=== PATIENT | female | born 1945 | race Caucasian/White ===

== ENCOUNTER 2019-05-18 14:12 | Emergency (ER) | payer MEDICARE, BC ==
[2019-05-18 14:34] VITALS: BP 137/95; PULSE 68
[2019-05-18] MEDS ORDERED: Sodium Chloride 0.9% 1,000 ML IV SCH ×2 (15:00→16:45)
--- NOTE | 2019-05-18 15:00 | EDM.PDOC ---
ED HPI GENERAL MEDICAL PROBLEM - General Chief Complaint: Respiratory Problem Stated Complaint: SOB Time Seen by Provider: 05/18/19 14:50 Source of Information: Reports: Patient History Limitations: Reports: No Limitations - History of Present Illness INITIAL COMMENTS - FREE TEXT/NARRATIVE: 74-year-old female presents to the ED for evaluation of pleuritic anterior chest pain. The came on fairly suddenly this morning was 0800 hrs. She has pain primarily in the left upper anterior chest that also feels that in the lower mid and precordial chest under her breast on the left side. She also states feeling it seems to be starting to spread to the right side as well. It's not bad if she breathes quite shallow but if she breathes deeply at all it is quite sharp and stabbing. She's had a cold with nasal congestion and minimal cough for the last week. No fever or chills. Mild quantities of sputum may be first thing in the morning. Hemoptysis. She has been treated for rheumatoid arthritis with 9 years of infusions in the past but now the diagnosis and left in a bit of possibly not. Patient also has nausea and some diffuse upper abdominal discomfort as well. No diarrhea. No vomiting. Patient is allergic to NSAIDs and codeine. Also allergic to methotrexate. Previous abdominal surgeries that of a cholecystectomy, appendectomy, total hysterectomy with retention of one of her ovaries and then surgery for a perforated colon felt to be a side effect of the infusions being given for rheumatoid arthritis. She required a resection of colon and primary anastomosis. Patient has been having a lot more heartburn as of late and this will cause some pain to radiate up into her left chest as well into her neck and throat. No pain into her left arm or shoulder blade today. She has no known heart disease. Onset: Today Onset Date: 05/18/19 Onset Time: 08:00 Duration: Hour(s): Location: Reports: Chest (Pleuritic pain throughout the left precordial anterior chest.) Quality: Reports: Sharp, Stabbing (Strongly pleuritic left-sided anterior chest pain) Severity: Moderate (5-6 out of 10 with a deep breath) Improves with: Reports: Rest (And shallow breathing) Worsens with: Reports: Movement Context: Reports: Other. Denies: Activity (Certain movements and deep breath will make the pain worse), Exercise, Lifting, Sick Contact, Trauma Associated Symptoms: Reports: Chest Pain (Spontaneous occurrence rather suddenly about 0800 hrs. this morning.), Cough, Loss of Appetite, Malaise, Nausea/Vomiting, Shortness of Breath. Denies: Confusion, Diaphoresis, Fever/ Chills (Minimal cough with sputum production 1 week), Headaches, Rash, Seizure , Syncope, Weakness (Nausea without vomiting) Treatments HOME LENDING OFFICER: Reports: Other (see below) (None.) Left Chest Pain Score (Numeric/FACES): 5 - Related Data Allergies Allergy/AdvReac Type Severity Reaction Status Date / Time atorvastatin Allergy hive Verified 05/18/19 14:34 codeine Allergy hive Verified 05/18/19 14:34 methotrexate Allergy hive Verified 05/18/19 14:34 NSAIDS (Non-Steroidal Allergy hive Verified 05/18/19 14:34 Anti-Inflamma piroxicam [From Feldene] Allergy hive Verified 05/18/19 14:34 Home Meds: Home Meds Acetaminophen [Tylenol Extra Strength] 500 mg PO DAILY PRN 10/05/14 [History] Aspirin [Nelson Chewable Aspirin] 81 mg PO DAILY 10/05/14 [History] Levothyroxine [Synthroid] 88 mcg PO DAILY 10/05/14 [History] Methylcellulose [Citrucel] 2 gm PO BID 10/05/14 [History] Pantoprazole [ProTONIX] 40 mg PO DAILY 10/05/14 [History] Sertraline [Zoloft] 100 mg PO DAILY 10/05/14 [History] amLODIPine [Norvasc] 5 mg PO DAILY 10/05/14 [History] Dicyclomine [Bentyl] 20 mg PO Q8H PRN #15 tablet 05/18/19 [Rx] predniSONE [Deltasone] 20 mg PO ASDIRECTED #15 tablet 05/18/19 [Rx] Past Medical History HEENT History: Reports: Impaired Vision Cardiovascular History: Reports: Hypertension Genitourinary History: Reports: Urinary Incontinence EDITORIAL SPECIALIST History: Reports: Psychiatric History: Reports: Depression Endocrine/Metabolic History: Reports: Hypothyroidism, Osteopenia - Past Surgical History HEENT Surgical History: Reports: Adenoidectomy, Naso-Sinus Surgery, Tonsillectomy GI Surgical History: Reports: Abdominal paracentesis, Appendectomy, Cholecystectomy, Other (See Below) Other GI Surgeries/Procedures: perforated colon, required partial colectomy with primary anastomosis. Perforation of the colon felt to be secondary to medication being infused for rheumatoid arthritis. Female Surgical History: Reports: Hysterectomy, Salpingo-Oophorectomy ( Retained one ovary.) Musculoskeletal Surgical History: Reports: Knee Replacement (Bilateral total knee replacements), Other (See Below) Other Musculoskeletal Surgeries/Procedures:: L4-5-12? rods in back Social & Family History - Family History Neurological: Reports: CVA - Tobacco Use Smoking Status *Q: Never Smoker Second Hand Smoke Exposure: No - Caffeine Use Caffeine Use: Reports: Coffee - Recreational Drug Use Recreational Drug Use: No - Living Situation & Occupation Living situation: Reports: Occupation: Retired ED ROS GENERAL - Review of Systems Review Of Systems: See Below Constitutional: Reports: Malaise, Decreased Appetite. Denies: Fever, Chills, Weight Loss HEENT: Reports: Glasses Respiratory: Reports: Shortness of Breath, Pleuritic Chest Pain (Strongly pleuritic left-sided chest pain.), Cough, Sputum (Minimal cough 1 week with nasal congestion. I.e. cold symptoms). Denies: Wheezing Cardiovascular: Reports: Chest Pain ( of clear sputum production.), Blood Pressure Problem ( see history of present illness ), Dyspnea on Exertion. Denies: Claudication, Edema, Lightheadedness, Orthopnea ( chronic hypertension well controlled), Palpitations Endocrine: Reports: Fatigue GI/Abdominal: Reports: Decreased Appetite, Other (Increased GERD as of late rating up into her neck and throat.). Denies: Constipation, Diarrhea, Difficulty Swallowing, Hematemesis, Hematochezia : Reports: Frequency Musculoskeletal: Reports: Back Pain, Joint Pain (Pain in her hands particularly the first and second second and third metacarpal phalangeal joints. Plenty of pain in her toes as well. Has had bilateral total knee replacements) Skin: Reports: No Symptoms Neurological: Reports: No Symptoms Psychiatric: Reports: No Symptoms Hematologic/Lymphatic: Reports: No Symptoms ED EXAM, GENERAL - Physical Exam Exam: See Below Exam Limited By: No Limitations General Appearance: Alert, WD/WN, Moderate Distress, Other (Temperatures 36.2. Pulse 60 and sinus respiratory distress 15. Sats are 96-98% on room air. BP is 121/72.) Eye Exam: Bilateral Eye: Normal Inspection, PERRL Throat/Mouth: Normal Inspection, Normal Lips, Normal Oropharynx Head: Atraumatic, Normocephalic Neck: Normal Inspection, Limited Range of Motion, Tender Lateral. No: Lymphadenopathy (L), Lymphadenopathy (R) Respiratory/Chest: No Respiratory Distress, Lungs Clear, Normal Breath Sounds, No Accessory Muscle Use, Splinting, Other (Splinting respirations.). No: Decreased Breath Sounds Cardiovascular: Normal Peripheral Pulses, Regular Rate, Rhythm, No Edema, No Gallop, No Murmur, No Rub Peripheral Pulses: 2+: Posterior Tibial (L), Posterior Tibial (R), Dorsalis Pedis (L), Dorsalis Pedis (R) GI/Abdominal: Normal Bowel Sounds, Soft, Non-Tender, No Organomegaly, No Abnormal Bruit, No Mass, Pelvis Stable, Tender (Tenderness just below the epigastrium.), Abnormal Bowel Sounds, Other (Negative Glynn sign) Back Exam: Decreased Range of Motion (Very limited range of motion and she's got fusion of her lower back. Well-healed scar over her mid lower lumbar spine.) , Other Extremities: Normal Inspection, Normal Range of Motion, Non-Tender, Other (No edema no pain or tenderness in the posterior calves to suggest DVT.) Neurological: Alert, Oriented, CN II-XII Intact, Normal Cognition, Normal Gait Psychiatric: Anxious Skin Exam: Warm, Dry, Intact, Normal Color, No Rash EKG INTERPRETATION EKG Date: 05/18/19 Time: 14:29 Rhythm: NSR Rate (Beats/Min): 64 [place]: LAD-Left [place] Deviation (Left axis deviation of -33.) P-Wave: Enlarged (Consider left atrial hypertrophy pattern.) QRS: Other (There is early R-wave transition particularly noted in V2. Consider right ventricular hypertrophy versus right ventricular strain pattern. Decreased voltage limb and precordial leads. There are near Q waves in leads II , III, and F aVF. Consider possible old inferior wall myocardial infarction.) ST-T: Other QT: Normal EKG Interpretation Comments: Abnormal ECG Course - Vital Signs Last Recorded V/S: Last Vital Signs Temp 36.2 C 05/18/19 14:25 Pulse 68 05/18/19 14:25 Resp 15 05/18/19 14:25 BP 137/95 H 05/18/19 14:25 Pulse Ox 96 05/18/19 14:25 - Orders/Labs/Meds Labs: Laboratory Tests 05/18/19 05/18/19 05/18/19 Range/Units 15:30 15:30 15:30 WBC 7.55 (3.98-10.04) K/mm3 RBC 4.42 (3.98-5.22) M/mm3 Hgb 13.0 (11.2-15.7) gm/dl Hct 38.0 (34.1-44.9) % MCV 86.0 (79.4-94.8) fl MCH 29.4 (25.6-32.2) pg MCHC 34.2 (32.2-35.5) g/dl RDW Std Deviation 44.3 (36.4-46.3) fL Plt Count 268 (182-369) K/mm3 MPV 9.3 L (9.4-12.3) fl Neut % (Auto) 72.7 H (34.0-71.1) % Lymph % (Auto) 17.9 L (19.3-51.7) % [place] % (Auto) 8.3 (4.7-12.5) % Eos % (Auto) 0.8 (0.7-5.8) Baso % (Auto) 0.3 (0.1-1.2) % Neut # (Auto) 5.49 (1.56-6.13) K/mm3 Lymph # (Auto) 1.35 (1.18-3.74) K/mm3 [place] # (Auto) 0.63 H (0.24-0.36) K/mm3 Eos # (Auto) 0.06 (0.04-0.36) K/mm3 Baso # (Auto) 0.02 (0.01-0.08) K/mm3 ESR (0-20) mm/hr PT 10.3 (9.7-12.0) SECONDS INR 0.94 APTT 23 (22-31) SECONDS D-Dimer, Quantitative (0.19-0.50) mg/L Sodium 138 (136-145) mEq/L Potassium 4.0 (3.5-5.1) mEq/L Chloride 104 (98-107) mEq/L Carbon Dioxide 27 (21-32) mEq/L Anion Gap 11.0 (5-15) BUN 17 (7-18) mg/dL Creatinine 1.2 H (0.55-1.02) mg/dL Est Cr Clr Drug Dosing 33.51 mL/min Estimated GFR (MDRD) 44 (>60) mL/min BUN/Creatinine Ratio 14.2 (14-18) Glucose 95 (83-115) mg/dL Calcium 9.2 (8.5-10.1) mg/dL Magnesium 2.1 (1.8-2.4) mg/dl Total Bilirubin 0.3 (0.2-1.0) mg/dL AST 15 (15-37) U/L ALT 18 (14-59) U/L Alkaline Phosphatase 116 (46-116) U/L Troponin I < 0.017 (0.00-0.056) ng/mL C-Reactive Protein 0.5 (<1.0) mg/dL NT-Pro-B Natriuret Pep (0-450) pg/mL Total Protein 7.4 (6.4-8.2) g/dl Albumin 3.8 (3.4-5.0) g/dl Globulin 3.6 gm/dL Albumin/Globulin Ratio 1.1 (1-2) Amylase (20-160) U/L 05/18/19 05/18/19 05/18/19 Range/Units 15:30 15:30 15:30 WBC (3.98-10.04) K/mm3 RBC (3.98-5.22) M/mm3 Hgb (11.2-15.7) gm/dl Hct (34.1-44.9) % MCV (79.4-94.8) fl MCH (25.6-32.2) pg MCHC (32.2-35.5) g/dl RDW Std Deviation (36.4-46.3) fL Plt Count (182-369) K/mm3 MPV (9.4-12.3) fl Neut % (Auto) (34.0-71.1) % Lymph % (Auto) (19.3-51.7) % [place] % (Auto) (4.7-12.5) % Eos % (Auto) (0.7-5.8) Baso % (Auto) (0.1-1.2) % Neut # (Auto) (1.56-6.13) K/mm3 Lymph # (Auto) (1.18-3.74) K/mm3 [place] # (Auto) (0.24-0.36) K/mm3 Eos # (Auto) (0.04-0.36) K/mm3 Baso # (Auto) (0.01-0.08) K/mm3 ESR 22 H (0-20) mm/hr PT (9.7-12.0) SECONDS INR APTT (22-31) SECONDS D-Dimer, Quantitative 0.86 H (0.19-0.50) mg/L Sodium (136-145) mEq/L Potassium (3.5-5.1) mEq/L Chloride (98-107) mEq/L Carbon Dioxide (21-32) mEq/L Anion Gap (5-15) BUN (7-18) mg/dL Creatinine (0.55-1.02) mg/dL Est Cr Clr Drug Dosing mL/min Estimated GFR (MDRD) (>60) mL/min BUN/Creatinine Ratio (14-18) Glucose (83-115) mg/dL Calcium (8.5-10.1) mg/dL Magnesium (1.8-2.4) mg/dl Total Bilirubin (0.2-1.0) mg/dL AST (15-37) U/L ALT (14-59) U/L Alkaline Phosphatase (46-116) U/L Troponin I (0.00-0.056) ng/mL C-Reactive Protein (<1.0) mg/dL NT-Pro-B Natriuret Pep 146 (0-450) pg/mL Total Protein (6.4-8.2) g/dl Albumin (3.4-5.0) g/dl Globulin gm/dL Albumin/Globulin Ratio (1-2) Amylase (20-160) U/L 05/18/19 Range/Units 15:30 WBC (3.98-10.04) K/mm3 RBC (3.98-5.22) M/mm3 Hgb (11.2-15.7) gm/dl Hct (34.1-44.9) % MCV (79.4-94.8) fl MCH (25.6-32.2) pg MCHC (32.2-35.5) g/dl RDW Std Deviation (36.4-46.3) fL Plt Count (182-369) K/mm3 MPV (9.4-12.3) fl Neut % (Auto) (34.0-71.1) % Lymph % (Auto) (19.3-51.7) % [place] % (Auto) (4.7-12.5) % Eos % (Auto) (0.7-5.8) Baso % (Auto) (0.1-1.2) % Neut # (Auto) (1.56-6.13) K/mm3 Lymph # (Auto) (1.18-3.74) K/mm3 [place] # (Auto) (0.24-0.36) K/mm3 Eos # (Auto) (0.04-0.36) K/mm3 Baso # (Auto) (0.01-0.08) K/mm3 ESR (0-20) mm/hr PT (9.7-12.0) SECONDS INR APTT (22-31) SECONDS D-Dimer, Quantitative (0.19-0.50) mg/L Sodium (136-145) mEq/L Potassium (3.5-5.1) mEq/L Chloride (98-107) mEq/L Carbon Dioxide (21-32) mEq/L Anion Gap (5-15) BUN (7-18) mg/dL Creatinine (0.55-1.02) mg/dL Est Cr Clr Drug Dosing mL/min Estimated GFR (MDRD) (>60) mL/min BUN/Creatinine Ratio (14-18) Glucose (83-115) mg/dL Calcium (8.5-10.1) mg/dL Magnesium (1.8-2.4) mg/dl Total Bilirubin (0.2-1.0) mg/dL AST (15-37) U/L ALT (14-59) U/L Alkaline Phosphatase (46-116) U/L Troponin I (0.00-0.056) ng/mL C-Reactive Protein (<1.0) mg/dL NT-Pro-B Natriuret Pep (0-450) pg/mL Total Protein (6.4-8.2) g/dl Albumin (3.4-5.0) g/dl Globulin gm/dL Albumin/Globulin Ratio (1-2) Amylase 63 (20-160) U/L Meds: Medications Discontinued Medications Generic Name Dose Route Start Last Admin Trade Name Freq PRN Reason Stop Dose Admin Al Hydroxide/Mg Hydroxide 30 0 ml 05/18/19 18:33 05/18/19 18:47 ml/ Lidocaine HCl 15 ml PO 05/18/19 18:34 45 ml ONETIME ONE Administration Dexamethasone 10 mg 05/18/19 19:33 05/18/19 19:49 Dexamethasone IVPUSH 05/18/19 19:34 10 mg ONETIME ONE Administration Dicyclomine HCl 20 mg 05/18/19 19:33 05/18/19 19:50 Bentyl PO 05/18/19 19:34 20 mg ONETIME ONE Administration Hydromorphone HCl 0.5 mg 05/18/19 15:01 05/18/19 15:34 Dilaudid IVPUSH 05/18/19 15:02 0.5 mg ONETIME ONE Administration Hydromorphone HCl 0.5 mg 05/18/19 16:38 05/18/19 16:42 Dilaudid IVPUSH 05/18/19 16:39 0.5 mg ONETIME ONE Administration Sodium Chloride 1,000 mls @ 75 mls/hr 05/18/19 15:00 05/18/19 15:38 Normal Saline IV 75 mls/hr ASDIRECTED HERIBERTO Administration Sodium Chloride 1,000 mls @ 500 mls/hr 05/18/19 16:45 Normal Saline IV ASDIRECTED HERIBERTO Sodium Chloride 100 mls @ 75 mls/hr 05/18/19 16:45 05/18/19 17:09 Normal Saline IV 75 mls/hr ASDIRECTED HERIBERTO Administration Iopamidol 100 ml 05/18/19 16:41 05/18/19 17:08 Isovue-370 (76%) IVPUSH 05/18/19 16:42 100 ml ONETIME ONE Administration Magnesium Citrate 240 ml 05/18/19 19:34 05/18/19 19:50 Citrate Of Magnesia PO 05/18/19 19:35 240 ml ONETIME ONE Administration Ondansetron HCl 4 mg 05/18/19 15:01 05/18/19 15:32 Zofran IVPUSH 05/18/19 15:02 4 mg ONETIME ONE Administration Sodium Chloride 10 ml 05/18/19 16:41 05/18/19 17:08 Saline Flush FLUSH 10 ml ONETIME PRN Administration IV FLUSH - Radiology Interpretation Free Text/Narrative:: 74-year-old female presents to the ED with fairly sudden onset of diffuse left- sided pleuritic chest pain this morning. Started about 0800 hrs. and she's found that it's progressed intensity as the day has gone on. She's had cold- like symptoms for the last week with slight runny nose and minimal cough. No fever or chills. She has a past history of suspect rheumatoid arthritis. No diagnosis is rheumatoid lung. No recent travel history to be worrisome for DVT. She is splinting respirations as deep breathing makes the pain much worse. Has a history of significant GERD and that's been worse as of late rating up into her neck and throat. This feels different. She does have diffuse chest wall pain on exam particularly ribs 2-6 midclavicular line on the left side of ribs 345 on the right side. CT suggests possible old inferior wall myocardial infarction. There is no signs of acute ischemic change. There is prominent R waves in V2 suggesting right ventricular hypertrophy or strain pattern. Therefore PE needs to be ruled out. Sats are 98% room air. Rated as 5-6 of the 10. She appears to be quite uncomfortable. IV will be normal saline at 75 mils per hour. Will give Dilaudid 0.5 mg IV with Zofran 4 mg IV. Patient is allergic to all nonsteroidals. Labs will include sedimentation rate and CRP and d-dimer and troponin. - Re-Assessments/Exams Free Text/Narrative Re-Assessment/Exam: 05/18/19 16:06 chest x-ray done portably is completely within normal limits. Slightly rotated to the right. Did not take a deep inspiration. 05/18/19 16:31 Hematology reveals a normal white count at 7.55. Auto differential is 72.7% neutrophils. Hemoglobin is 13.0 with hematocrit of 38.0. Platelet count 268,000. PT is 10.3 with an INR 0.94 PTT is 23. D-dimer is mildly elevated at 0.86. Sodium is 138 with a potassium of 4.0. Chloride 104 bicarbonate 27. Anion gap is 11.0. The you and 17. Creatinine is 1.2. Estimated GFR is 44. Stage III chronic kidney disease . glucose is 95. Calcium is 9.2. Magnesium is 2.1. Liver function is normal. Troponin I is less than 0.017 C- reactive protein is 0.5 BNP is 146. Total protein 7.4 with no been fraction of 3.8. Will therefore proceed with CT pulmonary angiogram. IV will be opened up to full. 05/18/19 16:39 patient and advised of the findings. We will go ahead with a CT pulmonary and gram. IV will be opened up to 500 mils of now are of normal saline. She still having more pain although it seems to left her upper chest it's more in her left upper quadrant of her abdomen. She arrived and pelvis performed at the same time as her chest. Given repeat Dilaudid 0.5 mg IV for pain relief. No adverse effects from the first dose. 05/18/19 18:26 CT of the chest reveals no pericardial thickening. Mediastinum and hilar regions are unremarkable. Thoracic aorta shows no aneurysm. Pulmonary arteries show no filling defects to indicate pulmonary embolism. Visualized lungs show no acute parenchymal changes. Incidental dependent atelectasis noted within both posterior lungs. Bone window settings were reviewed which shows mild disc space narrowing throughout the entire thoracic spine with no acute osseous abnormality noted. CT of the abdomen and pelvis reveals a small to moderate sized hiatal hernia. This is slightly increased in size from previous exam. There is mild intrahepatic biliary ductal dilatation seen. There is slight extrahepatic biliary duct dilatation as well. Previous cholecystectomy is noted which is most likely the etiology for the biliary tree obstruction. No focal abnormalities appreciated within the liver. Spleen is normal in size. Adrenal glands show no nodules. Pancreas is within normal limits. Kidneys show symmetric contrast enhancement without hydronephrosis or mass. Aorta shows no aneurysm with diffuse atherosclerotic calcification being noted. No retroperitoneal adenopathy or mesenteric abnormalities are noted. No pelvic mass or adenopathy appreciated. There is an anastomotic sutures noted in the rectosigmoid junction. No free fluid or inflammatory changes seen. Appendix is not visualized with any certainty. Bone window settings were reviewed which shows scoliosis and degenerative change throughout the spine. His previous surgery is noted within the lower lumbar spine there is a small fat-containing umbilical hernia. There is moderately increased stool within the colon appreciated. 05/18/19 18:32 on consultation with the patient she now has more retrosternal pressure discomfort. I suspect this is secondary to the hiatal hernia. Will give her a GI cocktail. At this time she has to get up to use the bathroom. She' ll get a GI cocktail when she returns from the bathroom. 05/18/19 19:34 Discussed the findings with the patient and her . It appears that she has 3 or 4 things going on at this time. I believe her abdominal pain is secondary to constipation test of colic as most of the ascending colon all of the transverse colon and portions of the descending colon contain a large amount of stool. Medially this by Citroma 8 ounces by mouth tomorrow morning to provide bowel cleanse. She's been using Citrucel chronically since she had rectosigmoid surgery. Suggest changing this to MiraLAX powder 17 g daily for constipation relief. Second problem is pleuritic chest pain which appears to be viral in etiology since she has a normal white count. She is allergic to all NSAIDs and doesn't do well with pain medication. Going to therefore place her on steroids giving her dexamethasone 10 mg now through the IV and then start her on prednisone 20 mg twice daily for 5 days and then once daily in the morning for another 5 days. The third problem is increased reflux and heartburn recently and she reports 2 very bad days in the last 7 days with severe heartburn which may be playing a large role in her chest pain syndrome. CT shows that the hiatal hernia has enlarged in size as compared to the last CT. We discussed follow-up with Dr. Wise surgeon who has worked on her before to discuss whether or not she is a candidate for fundoplication. She will double her Prilosec 20 mg twice daily for the next 10 days morning and bedtime. She will also use Bentyl 20 mg tablet three times daily before meals for the next 5 days to relieve spasm of the food pipe. Departure - Departure Time of Disposition: 19:38 Disposition: Home, Self-Care 01 Condition: Fair Clinical Impression: Pleurisy without effusion, Constipation by delayed colonic transit, Gastroesophageal reflux disease with hiatal hernia - Discharge Information *PRESCRIPTION DRUG MONITORING PROGRAM REVIEWED*: Not Applicable *COPY OF PRESCRIPTION DRUG MONITORING REPORT IN PATIENT LOKI: Not Applicable Prescriptions: Dicyclomine [Bentyl] 20 mg PO Q8H PRN #15 tablet PRN Reason: Abdominal cramps/diarrhea predniSONE [Deltasone] 20 mg PO ASDIRECTED #15 tablet Instructions: Constipation, Adult, [id number], Gastroesophageal Reflux Disease, Adult, [id number], Pleurisy, [id number] Referrals: Denisha Camacho BEATER ENGINEER HELPER [Primary Care Provider] - Forms: ED Department Discharge Additional Instructions: Evaluation the emergency room today in regards to diffuse anterior pleuritic chest pain. Pleurisy means it hurts to breathe. The cause of this appears to be bilateral leisure white count is normal. CT scan of the chest did not reveal any blood clots in the lungs or inflammation of the lung lining or heart lining. Sign of congestive heart failure. Suggest treatment with Deltasone which is of prednisone based drug 1 tablet with breakfast and supper daily for 5 days and then once in the morning only for another 5 days to relieve inflammation. This is because she cannot tolerate nonsteroidal anti- inflammatories. Second problem was diffuse upper abdominal pain which is I believe secondary to intestinal colic from constipation. The CT demonstrates a large amount of stool throughout the right side of the colon across the upper abdomen and parts of the descending colon on the left side. Suggest taking Citroma or magnesium citrate 8 ounces tomorrow morning mixed with 6 ounces of juice of choice or Gatorade or Powerade to provide bowel cleanse. This usually starts to work in 1-2 hours need bowels will usually move 3 or 4 times often ending in some diarrhea. Suggest stopping the Citrucel and replacing with MiraLAX powder 1 scoop or 17 g every day to prevent constipation. Third problem is I believe esophageal spasm due to hiatal hernia. Hiatal hernia on CT today is larger than it was on last CT scan. As you indicated you had terrible heartburn a couple days in the last week. Suggest using Bentyl 20 mg with each meal the next 5 days to help the esophagus heal. Suggest increasing her Prilosec or Protonix to twice daily once in the morning and once at bedtime to try and refer the reduce the acid in the stomach which I think is causing reflux from a large hiatal hernia. Suggest consultation with Dr. Wise in [place] in regards to possibility of fundoplication surgery to repair hiatal hernia prevent reflux disease. Follow-up with personal care physician in 3-4 days time to make sure that you're getting better.
[2019-05-18] MEDS ORDERED: Ondansetron 4 MG/2 ML SDV IVPUSH ONE (15:01)
[2019-05-18] MEDS ORDERED: HYDROmorphone 0.5 MG/0.5 ML Syringe IVPUSH ONE ×2 (15:01→16:38)
[2019-05-18] MEDS ORDERED: Sodium Chloride 0.9% 10 ML Syringe FLUSH PRN (16:41)
[2019-05-18] MEDS ORDERED: Iopamidol 755 Mg/ML 100 ML Bottle IVPUSH ONE (16:41)
[2019-05-18] MEDS ORDERED: Sodium Chloride 0.9% 100 ML IV SCH (16:45)
--- NOTE | 2019-05-18 17:36 | CT ---
CT chest Technique: Multiple axial sections through the chest were obtained. Intravenous contrast was utilized. Study has been performed as a pulmonary angiogram protocol. Findings: No pericardial thickening is seen. Mediastinum and hilar regions are unremarkable. Thoracic aorta shows no aneurysm. Pulmonary arteries show no filling defects to indicate pulmonary embolism. Visualized lungs show no acute parenchymal change. Incidental dependent atelectasis is noted within both posterior lungs. Bone window settings were reviewed which shows mild disc space narrowing throughout the thoracic spine with no acute osseous abnormality being identified. Impression: 1. No findings of pulmonary embolism. 2. Other findings which are believed to be incidental as noted above. Diagnostic code #2
--- NOTE | 2019-05-18 17:36 | CT ---
CT abdomen and pelvis Technique: Multiple axial sections were obtained from above the dome of the diaphragm inferiorly through the pubic symphysis. Intravenous contrast was utilized. No oral contrast has been given. Comparison: Previous CT abdomen and pelvis exam of 02/19/15. Findings: Visualized lung bases shows nothing acute. Small to moderate sized hiatal hernia is noted. This has slightly increased in size from prior exam. Mild intrahepatic biliary ductal dilatation is seen. Slight extrahepatic biliary duct dilatation is noted. Previous cholecystectomy is noted which is most likely the etiology for the biliary dilatation. No focal abnormality is appreciated within the liver. Spleen size is normal. Adrenal glands show no nodule. Pancreas is within normal limits. Kidneys show symmetric contrast enhancement without hydronephrosis or mass. Aorta shows no aneurysm with atherosclerotic calcification being noted. No retroperitoneal adenopathy or mesenteric abnormalities are seen. No pelvic mass or adenopathy is seen. Anastomotic sutures are noted at the rectosigmoid junction. No free fluid or inflammatory change is seen. Appendix is not visualized with certainty. Bone window settings were reviewed which shows scoliosis and degenerative change throughout the spine. Previous surgery is noted within the lower lumbar spine. Small fat-containing umbilical hernia is noted. Slight increased stool within the colon is noted. Impression: 1. Findings as noted above. Nothing acute is appreciated on CT study of the abdomen and pelvis. Diagnostic code #2
[2019-05-18] MEDS ORDERED: Alum Hydrox/Mag Hydrox/Simeth 30 ML, Lidocaine 2% 15 ML PO ONE ×2 (18:33)
[2019-05-18] MEDS ORDERED: Dicyclomine 10 MG Cap PO ONE (19:33)
[2019-05-18] MEDS ORDERED: Dexamethasone 10 MG/ML SDV IVPUSH ONE (19:33)
[2019-05-18] MEDS ORDERED: Magnesium Citrate Solution 296 ML Bottle PO ONE (19:34)
--- NOTE | 2019-05-19 08:00 | CR ---
Chest: Portable view of the chest was obtained. Comparison: Prior chest x-ray of 06/12/15. Heart size is normal for portable technique. Tortuous thoracic aorta is seen. Lungs are clear. Bony structures show mild scoliosis with the spine. Impression: 1. Nothing acute is appreciated on portable chest x-ray. Diagnostic code #2
== END 2019-05-18 20:05 | disposition home or self-care (01) ==
LOC: JD.ED 14:12
DX: K21.9 Gastro-esophageal reflux disease without esophagitis (principal); K44.9 Diaphragmatic hernia without obstruction or gangrene; R09.1 Pleurisy; K59.01 Slow transit constipation; I10 Essential (primary) hypertension; E03.9 Hypothyroidism, unspecified; F32.9 Major depressive disorder, single episode, unspecified; Z88.6 Allergy status to analgesic agent; Z88.5 Allergy status to narcotic agent; Z88.8 Allergy status to other drugs, medicaments and biological substances; Z90.49 Acquired absence of other specified parts of digestive tract; Z90.89 Acquired absence of other organs; Z90.710 Acquired absence of both cervix and uterus; Z79.899 Other long term (current) drug therapy; Z79.82 Long term (current) use of aspirin; Z79.890 Hormone replacement therapy
CPT/HCPCS: 36415; 71045; 71275; 74177; 80053; 82150; 83735; 83880; 84484; 85025; 85379; 85610; 85652; 85730; 86140; 93005; 96361; 96374; 96375; 96376; 99285; A9270; J1100; J1170; J2405; J7030; J7040; Q9967; 93010

== ENCOUNTER 2022-08-31 07:52 | Day surgery (SDC) | payer MEDICARE, BC ==
[~2022-08-31 07:52] MED LIST: Lactated Ringers 1,000 ML IV SCH; Lidocaine 1%/Sod Bicarbonate in NS 8.4% 1 ML Syringe IDERM PRN; Sodium Chloride 0.9% 10 ML Syringe FLUSH PRN; Sodium Chloride 0.9% 10 ML Syringe FLUSH SCH
[2022-08-31] MEDS ORDERED: Propofol 200 MG/20 ML SDV ONE (08:00)
[2022-08-31] MEDS ORDERED: Midazolam 1 MG/ML 2 ML SDV ONE (08:00)
[2022-08-31] MEDS ORDERED: Lidocaine 1% 2 ML ONE (08:01)
[2022-08-31] MEDS ORDERED: fentaNYL 100 MCG/2 ML SDV ONE (08:02)
[2022-08-31] MEDS: Bupivacaine 0.25% 10 ML SDV ONE ×2 (08:18→08:58)
[2022-08-31] MEDS: Lidocaine 1% 10 ML MDV ONE ×2 (08:19→08:58)
[2022-08-31] MEDS ORDERED: Ondansetron 4 MG/2 ML SDV IVPUSH PRN (08:26)
[2022-08-31] MEDS ORDERED: ceFAZolin 2 GM Vial ONE (08:29)
[2022-08-31] MEDS ORDERED: Ondansetron 4 MG/2 ML SDV ONE (08:30)
[2022-08-31 09:19] VITALS: BP 123/60; PULSE 57
== END 2022-08-31 10:00 | disposition home or self-care (01) ==
LOC: JD.SDS 07:52
PROVIDERS: ATTEND Orthopaedic Surgery
DX: M65.341 Trigger finger, right ring finger (principal); M65.841 Other synovitis and tenosynovitis, right hand; I12.9 Hypertensive chronic kidney disease with stage 1 through stage 4 chronic kidney disease, or unspecified chronic kidney disease; N18.9 Chronic kidney disease, unspecified; E03.9 Hypothyroidism, unspecified; K21.9 Gastro-esophageal reflux disease without esophagitis; M06.9 Rheumatoid arthritis, unspecified; D63.1 Anemia in chronic kidney disease; N17.9 Acute kidney failure, unspecified; J30.9 Allergic rhinitis, unspecified; F32.A Depression, unspecified; R73.09 Other abnormal glucose; E78.00 Pure hypercholesterolemia, unspecified; M81.0 Age-related osteoporosis without current pathological fracture; K58.9 Irritable bowel syndrome, unspecified; Z88.8 Allergy status to other drugs, medicaments and biological substances; Z88.5 Allergy status to narcotic agent; Z79.899 Other long term (current) drug therapy; Z79.890 Hormone replacement therapy; Z98.890 Other specified postprocedural states; Z68.28 Body mass index [BMI] 28.0-28.9, adult
CPT/HCPCS: 26055; J0690; J2250; J2405; J2704; J3490; J7120; 01810; J3010

== ENCOUNTER 2023-04-18 16:49 | Emergency (ER) | payer MEDICARE, BC ==
[2023-04-18] MEDS ORDERED: Sodium Chloride 0.9% 1,000 ML IV STA (17:15)
[2023-04-18] MEDS ORDERED: Sodium Chloride 0.9% 10 ML Syringe FLUSH PRN ×2 (17:15→18:28)
[2023-04-18 17:27] LABS: BASOPHILS PERCENT AUTO 0.4 % (0.0-1.0); EOSINOPHILS PERCENT AUTO 0.3 % (0.0-6.0); HEMATOCRIT 40.3 % (37.0-47.0); HEMOGLOBIN 13.4 gm/dl (12.0-16.0); IMMATURE GRAN ABSOLUTE AUTO 0.04 K/mm3 (0.00-0.05); IMMATURE GRAN PERCENT AUTO 0.4 % (0.0-0.4); LYMPHOCYTES ABSOLUTE AUTO 0.8 K/mm3 (1.0-4.8); LYMPHOCYTES PERCENT AUTO 8.8 % (24.0-44.0); MEAN CORPUSCULAR HEMOGLOBIN 30.1 pg (28.0-32.0); MEAN CORPUSCULAR HGB CONC 33.3 g/dl (32.0-36.0); MEAN CORPUSCULAR VOLUME 90.6 fl (83.0-99.0); MEAN PLATELET VOLUME 8.8 fl (9.4-12.3); MONOCYTES ABSOLUTE AUTO 0.4 K/mm3 (0.0-0.8); MONOCYTES PERCENT AUTO 4.1 % (0.0-8.0); NEUTROPHILS ABSOLUTE AUTO 7.8 K/mm3 (1.8-7.7); PLATELET COUNT,PLT 259 K/mm3 (150-400); RED BLOOD CELL COUNT 4.45 M/mm3 (4.10-5.30); WHITE BLOOD CELL COUNT,WBC 9.02 K/mm3 (3.9-11.3)
[2023-04-18 17:40] LABS: ALANINE AMINOTRANSFERASE,ALT 20 U/L (14-59); ALBUMIN 4.1 g/dl (3.4-5.0); ALKALINE PHOSPHATASE 93 U/L (46-116); ANION GAP 15.9 (5-15); ASPARTATE AMNIOTRANSFERASE,AST 19 U/L (15-37); BILIRUBIN TOTAL 0.3 mg/dL (0.2-1.0); BLOOD UREA NITROGEN,BUN 28 mg/dL (7-18); BUN/CREATININE RATIO 16.5 (14-18); CALCIUM 9.5 mg/dL (8.5-10.1); CARBON DIOXIDE,CO2 24 mEq/L (21-32); CHLORIDE,CL 102 mEq/L (98-107); CREATININE 1.7 mg/dL (0.55-1.02); ESTIMATED GFR 30 mL/min (>60); GLUCOSE RANDOM 100 mg/dL (70-99); LIPASE 157 U/L (73-393); POTASSIUM,K 3.9 mEq/L (3.5-5.1); PROTEIN TOTAL,TP 8.2 g/dl (6.4-8.2); SODIUM,NA 138 mEq/L (136-145)
[2023-04-18 17:44] LABS: C-REACTIVE PROTEIN < 0.2 mg/dL (<1.0)
[2023-04-18] MEDS ORDERED: Iopamidol 612 MG/ML 100 ML Bottle IVPUSH ONE (18:28)
[2023-04-18 19:45] LABS: APPEARANCE,URINE CLEAR (Clear); BILIRUBIN,URINE NEGATIVE (Negative); COLOR,URINE LIGHT YELLOW (Yellow); GLUCOSE,URINE NEGATIVE (Negative); KETONES,URINE NEGATIVE (Negative); LEUKOCYTE ESTERASE,URINE 1+ (Negative); NITRITE,URINE NEGATIVE (Negative); OCCULT BLOOD,URINE NEGATIVE (Negative); PROTEIN,URINE NEGATIVE (Negative); UROBILINOGEN,URINE 0.2 (0.2-1.0)
[2023-04-18 19:54] LABS: RBC,URINE 0-5 /hpf (0-5)
[2023-04-18 19:55] LABS: BACTERIA,URINE FEW /hpf (FEW); MUCUS,URINE FEW /hpf (FEW); RENAL EPITHELIAL CELLS,URINE 0-5 /hpf (0-5); SQUAMOUS EPITHELIAL CELLS,UR 0-5 /hpf (0-5)
[2023-04-18 20:44] VITALS: BP 151/64; PULSE 55
== END 2023-04-18 20:30 | disposition home or self-care (01) ==
LOC: JD.ED 16:49
DX: R10.12 Left upper quadrant pain (principal); R10.33 Periumbilical pain; K58.0 Irritable bowel syndrome with diarrhea; I12.9 Hypertensive chronic kidney disease with stage 1 through stage 4 chronic kidney disease, or unspecified chronic kidney disease; N18.30 Chronic kidney disease, stage 3 unspecified; K21.9 Gastro-esophageal reflux disease without esophagitis; E03.9 Hypothyroidism, unspecified; Z79.899 Other long term (current) drug therapy; Z88.5 Allergy status to narcotic agent; Z88.6 Allergy status to analgesic agent; Z88.8 Allergy status to other drugs, medicaments and biological substances; Z91.041 Radiographic dye allergy status
CPT/HCPCS: 36415; 74177; 80053; 81001; 83690; 85025; 86140; 87086; 96360; 99284; J3490; J7030; Q9967

== ENCOUNTER 2025-01-23 14:15 | Inpatient (IN) | payer MEDICARE ==
[2025-01-23 14:56] LABS: BASOPHILS PERCENT AUTO 0.3 % (0.0-1.0); EOSINOPHILS ABSOLUTE AUTO 0.1 K/mm3 (0.0-0.4); EOSINOPHILS PERCENT AUTO 0.9 % (0.0-6.0); HEMATOCRIT 43.7 % (37.0-47.0); HEMOGLOBIN 14.3 gm/dl (12.0-16.0); IMMATURE GRAN ABSOLUTE AUTO 0.06 K/mm3 (0.00-0.05); IMMATURE GRAN PERCENT AUTO 0.6 % (0.0-0.4); LYMPHOCYTES ABSOLUTE AUTO 1.5 K/mm3 (1.0-4.8); LYMPHOCYTES PERCENT AUTO 15.3 % (24.0-44.0); MEAN CORPUSCULAR HEMOGLOBIN 28.9 pg (28.0-32.0); MEAN CORPUSCULAR HGB CONC 32.7 g/dl (32.0-36.0); MEAN CORPUSCULAR VOLUME 88.5 fl (83.0-99.0); MEAN PLATELET VOLUME 9.1 fl (9.4-12.3); MONOCYTES ABSOLUTE AUTO 0.8 K/mm3 (0.0-0.8); MONOCYTES PERCENT AUTO 8.2 % (0.0-8.0); NEUTROPHILS ABSOLUTE AUTO 7.3 K/mm3 (1.8-7.7); NEUTROPHILS PERCENT AUTO 74.7 % (41.0-71.0); PLATELET COUNT,PLT 291 K/mm3 (150-400); RED BLOOD CELL COUNT 4.94 M/mm3 (4.10-5.30); WHITE BLOOD CELL COUNT,WBC 9.79 K/mm3 (3.9-11.3)
[2025-01-23] MEDS: Sodium Chloride 0.9% 10 ML Syringe FLUSH ONE (15:22)
[2025-01-23] MEDS: Sodium Chloride 0.9% 10 ML Syringe FLUSH PRN (15:22)
[2025-01-23] MEDS: Sodium Chloride 0.9% 1,000 ML IV ONE (15:22)
[2025-01-23 15:32] LABS: ALBUMIN 3.6 g/dl (3.4-5.0); ANION GAP 13.5 (5-15); BILIRUBIN TOTAL 0.3 mg/dL (0.2-1.0); C-REACTIVE PROTEIN 0.53 mg/dL (<0.30); CALCIUM 9.3 mg/dL (8.5-10.1); CREATININE 1.5 mg/dL (0.55-1.02); EST CRCL DRUG DOSING (CG) 25.83 mL/min; POTASSIUM,K 3.5 mEq/L (3.5-5.1); PROTEIN TOTAL,TP 7.3 g/dl (6.4-8.2)
[2025-01-23] MEDS: Iopamidol 612 MG/ML 100 ML Bottle IVPUSH ONE (15:56)
[2025-01-23 17:29] LABS: APPEARANCE,URINE CLEAR (Clear); BILIRUBIN,URINE NEGATIVE (Negative); COLOR,URINE LIGHT YELLOW (Yellow); GLUCOSE,URINE NEGATIVE (Negative); KETONES,URINE NEGATIVE (Negative); LEUKOCYTE ESTERASE,URINE NEGATIVE (Negative); NITRITE,URINE NEGATIVE (Negative); OCCULT BLOOD,URINE NEGATIVE (Negative); PH,URINE 6.5 (5.0-8.0); PROTEIN,URINE NEGATIVE (Negative); UROBILINOGEN,URINE 0.2 (0.2-1.0)
[2025-01-23] MEDS ORDERED: Ondansetron 4 MG/2 ML SDV IV PRN (17:32)
[2025-01-23] MEDS ORDERED: Acetaminophen 325 MG Tab PO PRN (17:32)
[2025-01-23] MEDS ORDERED: traMADol 50 MG Tab PO PRN (18:27)
[2025-01-23] MEDS: Lactated Ringers 1,000 ML IV ONE (18:32)
[2025-01-23] MEDS: Docusate Sodium 100 MG Cap PO SCH (20:33)
[2025-01-24 05:51] LABS: A/G RATIO 0.9 (1-2); ALBUMIN 2.9 g/dl (3.4-5.0); ANION GAP 10.7 (5-15); BASOPHILS PERCENT AUTO 0.1 % (0.0-1.0); BILIRUBIN TOTAL 0.5 mg/dL (0.2-1.0); BUN/CREATININE RATIO 17.3 (14-18); CALCIUM 8.9 mg/dL (8.5-10.1); CREATININE 1.1 mg/dL (0.55-1.02); EOSINOPHILS ABSOLUTE AUTO 0.3 K/mm3 (0.0-0.4); EOSINOPHILS PERCENT AUTO 3.5 % (0.0-6.0); EST CRCL DRUG DOSING (CG) 35.22 mL/min; HEMATOCRIT 37.2 % (37.0-47.0); IMMATURE GRAN ABSOLUTE AUTO 0.04 K/mm3 (0.00-0.05); IMMATURE GRAN PERCENT AUTO 0.6 % (0.0-0.4); LYMPHOCYTES ABSOLUTE AUTO 2.1 K/mm3 (1.0-4.8); LYMPHOCYTES PERCENT AUTO 28.8 % (24.0-44.0); MEAN CORPUSCULAR HEMOGLOBIN 29.4 pg (28.0-32.0); MEAN CORPUSCULAR HGB CONC 33.6 g/dl (32.0-36.0); MEAN CORPUSCULAR VOLUME 87.5 fl (83.0-99.0); MEAN PLATELET VOLUME 9.2 fl (9.4-12.3); MONOCYTES ABSOLUTE AUTO 0.6 K/mm3 (0.0-0.8); MONOCYTES PERCENT AUTO 7.7 % (0.0-8.0); NEUTROPHILS ABSOLUTE AUTO 4.3 K/mm3 (1.8-7.7); NEUTROPHILS PERCENT AUTO 59.3 % (41.0-71.0); PLATELET COUNT,PLT 253 K/mm3 (150-400); POTASSIUM,K 3.7 mEq/L (3.5-5.1); RED BLOOD CELL COUNT 4.25 M/mm3 (4.10-5.30); WHITE BLOOD CELL COUNT,WBC 7.18 K/mm3 (3.9-11.3)
[2025-01-24 05:53] LABS: HEMOGLOBIN 12.5 gm/dl (12.0-16.0)
[2025-01-24] MEDS: Enoxaparin 30 MG/0.3 ML Syringe SUBCUT SCH (08:15)
[2025-01-24] MEDS: Lactated Ringers 1,000 ML IV SCH (10:49)
[2025-01-24] MEDS: amLODIPine 5 MG Tab PO SCH (21:18)
[2025-01-25 04:54] VITALS: BP 148/73; PULSE 57
[2025-01-25] MEDS: Pantoprazole 40 MG Tab.CR PO SCH (04:56)
[2025-01-25 05:32] LABS: BASOPHILS PERCENT AUTO 0.2 % (0.0-1.0); EOSINOPHILS ABSOLUTE AUTO 0.2 K/mm3 (0.0-0.4); EOSINOPHILS PERCENT AUTO 3.6 % (0.0-6.0); HEMATOCRIT 34.8 % (37.0-47.0); HEMOGLOBIN 11.7 gm/dl (12.0-16.0); IMMATURE GRAN ABSOLUTE AUTO 0.03 K/mm3 (0.00-0.05); IMMATURE GRAN PERCENT AUTO 0.5 % (0.0-0.4); LYMPHOCYTES ABSOLUTE AUTO 1.9 K/mm3 (1.0-4.8); LYMPHOCYTES PERCENT AUTO 30.3 % (24.0-44.0); MEAN CORPUSCULAR HEMOGLOBIN 29.3 pg (28.0-32.0); MEAN CORPUSCULAR HGB CONC 33.6 g/dl (32.0-36.0); MEAN PLATELET VOLUME 8.7 fl (9.4-12.3); MONOCYTES ABSOLUTE AUTO 0.5 K/mm3 (0.0-0.8); MONOCYTES PERCENT AUTO 8.8 % (0.0-8.0); NEUTROPHILS ABSOLUTE AUTO 3.5 K/mm3 (1.8-7.7); NEUTROPHILS PERCENT AUTO 56.6 % (41.0-71.0); PLATELET COUNT,PLT 208 K/mm3 (150-400); WHITE BLOOD CELL COUNT,WBC 6.17 K/mm3 (3.9-11.3)
[2025-01-25 05:54] LABS: ALBUMIN 2.9 g/dl (3.4-5.0); ANION GAP 9.6 (5-15); BILIRUBIN TOTAL 0.5 mg/dL (0.2-1.0); BUN/CREATININE RATIO 12.7 (14-18); CREATININE 1.1 mg/dL (0.55-1.02); EST CRCL DRUG DOSING (CG) 35.22 mL/min; POTASSIUM,K 3.6 mEq/L (3.5-5.1); PROTEIN TOTAL,TP 5.9 g/dl (6.4-8.2)
[2025-01-25] MEDS: Levothyroxine 88 MCG Tab PO SCH (06:09)
[2025-01-25] MEDS ORDERED: Levothyroxine 88 MCG Tab PO SCH (09:00)
[2025-01-26] MEDS ORDERED: Enoxaparin 40 MG/0.4 ML Syringe SUBCUT SCH (09:00)
== END 2025-01-25 10:31 | disposition home or self-care (01) | DRG 439 ==
LOC: JD.ED 14:15 → JD.MS 17:32
PROVIDERS: ADMIT Family Medicine; ATTEND Family Medicine
DX: K85.90 Acute pancreatitis without necrosis or infection, unspecified (principal); N17.9 Acute kidney failure, unspecified; Z66 Do not resuscitate; E03.9 Hypothyroidism, unspecified; Z88.5 Allergy status to narcotic agent; K21.9 Gastro-esophageal reflux disease without esophagitis; Z79.890 Hormone replacement therapy; H54.7 Unspecified visual loss; I10 Essential (primary) hypertension; M19.90 Unspecified osteoarthritis, unspecified site; E86.0 Dehydration; M10.9 Gout, unspecified; K58.9 Irritable bowel syndrome, unspecified; M81.0 Age-related osteoporosis without current pathological fracture; M06.9 Rheumatoid arthritis, unspecified; F32.A Depression, unspecified; M85.80 Other specified disorders of bone density and structure, unspecified site; Z90.49 Acquired absence of other specified parts of digestive tract; Z90.710 Acquired absence of both cervix and uterus; Z96.659 Presence of unspecified artificial knee joint; Z88.8 Allergy status to other drugs, medicaments and biological substances; Z79.899 Other long term (current) drug therapy; Z98.890 Other specified postprocedural states
CPT/HCPCS: 36415; 74177; 80053; 81003; 82947; 83690; 84484; 85025; 86140; 86850; 86900; 86901; 93005; 96360; 96361; 99285; J7030; Q9967; 84478; 93010; A9270-GY; J1650; J7120